=== PATIENT | female | born 1965 | race Two or more races ===

== ENCOUNTER → 2024-05-24 | Outpatient (CLI) | payer MEDICAID, SELFPAY ==
--- NOTE | 2024-05-24 08:30 | XR_ITS ---
Examination: Screening digital mammography, bilateral Computer aided detection 3-D breast Tomosynthesis, bilateral Date and time of exam: May 24, 2024 at 0835 hours Compared to mammograms dating to February 20, 2018 Indication: Screening Technique: Nonmagnified MLO, CC views of the breasts to been obtained, reconstructed from 3-D Tomosynthesis images. R2 computer aided detection program utilized for evaluation of suspicious masses and/or abnormal calcifications. 3-D Tomosynthesis images obtained. Findings: Scattered areas of fibroglandular density Circumscribed nodule inner left breast again noted, probably benign Benign calcifications Impression: BI-RADS Category 0: Incomplete: Need additional imaging evaluation Recommend repeat left breast sonography to compare with the June 03, 2022 exam.
== END | disposition home or self-care (01) ==
LOC: CDIM 08:05
PROVIDERS: Referring Provider Family Medicine; Visit Provider Family Medicine
DX: Z12.31 Encounter for screening mammogram for malignant neoplasm of breast (principal); R92.8 Other abnormal and inconclusive findings on diagnostic imaging of breast
CPT/HCPCS: 77063; 77067

== ENCOUNTER → 2024-07-15 | Outpatient (CLI) | payer MEDICAID, SELFPAY ==
--- NOTE | 2024-07-15 11:00 | XR_ITS ---
Examination: Breast ultrasound, unilateral, left complete Date and time of exam: July 15, 2024 1128 hours INDICATIONS: Outside mammogram October 15, 2021 8mm mass upper inner right breast 8mm mass lower inner left breast Technique: Real-time walters scale ultrasonographic imaging performed left breast including all 4 quadrants as well as nipple retroareolar and axillary region. Findings: 12:00 cyst 4 x 3 mm 7:00 cyst 7 x 8 mm No solid nodules IMPRESSION: BI-RADS Category 2: Benign findings
== END | disposition home or self-care (01) ==
PROVIDERS: PCP Family Medicine; Referring Provider Family Medicine; Visit Provider Family Medicine
DX: N60.02 Solitary cyst of left breast (principal)
CPT/HCPCS: 76641